=== PATIENT | male | born 1960 | race African-American/Black ===

== ENCOUNTER 2019-03-08 13:54 | Emergency (ER) | payer MEDICAID ==
[~2019-03-08] VITALS: Ht 177.8 cm; Wt 109.0 kg
[2019-03-08 14:01] VITALS: BP 155/89
== END 2019-03-08 15:25 | disposition home or self-care (01) ==
LOC: ER 14:01
DX: S61.012A Laceration without foreign body of left thumb without damage to nail, initial encounter (principal); I10 Essential (primary) hypertension; E11.9 Type 2 diabetes mellitus without complications; Z88.6 Allergy status to analgesic agent; W45.8XXA Other foreign body or object entering through skin, initial encounter; Y93.89 Activity, other specified; Y92.018 Other place in single-family (private) house as the place of occurrence of the external cause
CPT/HCPCS: 99282

== ENCOUNTER 2021-06-21 13:11 | Emergency (ER) | payer MEDICAID, OTHER ==
[~2021-06-21] VITALS: Ht 177.8 cm; Wt 104.6 kg
[~2021-06-21 13:11] MED LIST: INSU100V34 SQ; METF-874 MT; SULF-292 MT
[2021-06-21] MEDS ORDERED: SODIUM CHLORIDE 0.9% 1,000 ML IV ONE ×2 (13:15→15:45)
[2021-06-21 13:50] LABS: BASOPHILS % 1.1 % (0.0-2.0); HEMATOCRIT. 43.8 % (42.0-52.0); HEMOGLOBIN. 14.7 g/dL (14.0-18.0); LYMPHOCYTES % 44.8 % (20.0-50.0); MEAN CORPUSCULAR HEMOGLOBIN 28.3 pg (28.0-32.0); MEAN CORPUSCULAR VOLUME 84.4 fL (80.0-94.0); MEAN PLATELET VOLUME 8.4 fl (7.4-10.4); MONOCYTES % 6.7 % (2.0-8.0); NEUTROPHILS % 45.4 % (40.0-76.0); PLATELET 255 x1000/uL (130-400); RED BLOOD CELL COUNT 5.19 mill/uL (4.7-6.1); RED CELL DISTRIBUTION WIDTH 13.8 % (11.6-14.6)
[2021-06-21 13:55] LABS: CHLORIDE 103 mEq/L (98-107)
[2021-06-21 14:01] LABS: BETA HYDROXYBUTYRATE 0.1 mMol/L (0.0-0.3)
[2021-06-21 15:01] LABS: PHOSPHORUS 2.9 mg/dL (2.5-4.9)
[2021-06-21 16:03] LABS: CLARITY URINE CLEAR (CLEAR); COLOR URINE YELLOW (YELLOW); KETONES URINE TRACE (NEGATIVE); LEUKOCYTE ESTERASE URINE TRACE (NEGATIVE); NITRITE URINE NEGATIVE (NEGATIVE); OCCULT BLOOD URINE NEGATIVE (NEGATIVE); PROTEIN URINE NEGATIVE (NEGATIVE); SPECIFIC GRAVITY URINE 1.032 (1.005-1.030)
[2021-06-21] MEDS ORDERED: CEFTRIAXONE 1 G PREMIX 50 ML IV ONE (17:00)
[2021-06-21] MEDS ORDERED: CEFP200T13 MT (17:01)
[2021-06-21 18:13] VITALS: BP 130/84
== END 2021-06-21 18:13 | disposition home or self-care (01) ==
LOC: ER 13:11
DX: N39.0 Urinary tract infection, site not specified (principal); E11.65 Type 2 diabetes mellitus with hyperglycemia; I49.9 Cardiac arrhythmia, unspecified; Z88.6 Allergy status to analgesic agent; Z98.890 Other specified postprocedural states
CPT/HCPCS: 36415; 70450; 71045; 80053; 81003; 82010; 82962; 83735; 83930; 84100; 85025; 93005; 96361; 96365; 99285; J0696; J7030; Z7610